=== PATIENT | male | born 1975 | race American Indian/Alaskan Native ===

== ENCOUNTER 2019-05-09 14:52 | Outpatient (CLI) | payer OTHER ==
--- NOTE | 2019-05-09 16:13 | XRay Report ---
CHEST 2 VIEWS / XR chest routine 2V INDICATION / CLINICAL INFORMATION: ROUTINE PHYSICAL. COMPARISON: None FINDINGS: PA and lateral chest radiographs demonstrate normal cardiomediastinal silhouette. Clear vaibhav gs without pleural effusions or CHF. Mid to lower thoracic right-sided degenerative osteophytes. IMPRESSION: No acute chest process, as described. Thank you for the opportunity to participate in this patient's care. Signer Name: Danielito Mcintyre Signed: 05/09/2019 4:08 PM Workstation Name: [id number]
== END 2019-05-09 14:53 | disposition home or self-care (01) ==
LOC: XRAY 14:52
PROVIDERS: ATTEND Internal Medicine Hematology & Oncology
DX: Z00.00 Encounter for general adult medical examination without abnormal findings (principal); M47.815 Spondylosis without myelopathy or radiculopathy, thoracolumbar region
CPT/HCPCS: 71046